=== PATIENT | female | born 1955 | race Two or more races ===

== ENCOUNTER 2022-05-28 13:23 | Emergency (ER) | payer MEDICAID ==
[~2022-05-28] VITALS: Ht 152.4 cm; Wt 49.9 kg
[2022-05-28] MEDS ORDERED: IBUP-1955 PO (15:33)
[2022-05-28] MEDS ORDERED: IBUPROFEN 600 MG TABLET PO ONE (16:00)
--- NOTE | 2022-05-28 16:29 | NUR ---
CALLED [facility] FOR TRANSPORTATION, ETA 1.5HR - 2 HRS
[2022-05-28] MEDS ORDERED: IBUPROFEN 600 MG TABLET ONE (17:23)
--- NOTE | 2022-05-28 18:45 | NUR ---
emt at bedside to pickup pt
--- NOTE | 2022-05-28 18:46 | NUR ---
DISCHARGE BACK TO [facility] ([phone]) FACILITY VIA GURNEY, ACCOMPANIED BY 2 [employer] OPER[employer] HELPER, IN STABLE CONDITION. DISCHARGE PAPERS PROVIDED.
[2022-05-28 19:07] VITALS: BP 126/77
== END 2022-05-28 19:07 ==
LOC: ER 13:30
DX: S83.91XA Sprain of unspecified site of right knee, initial encounter (principal); X50.1XXA Overexertion from prolonged static or awkward postures, initial encounter; Y93.89 Activity, other specified; Y92.89 Other specified places as the place of occurrence of the external cause; Y99.8 Other external cause status
CPT/HCPCS: 73564-TC